=== PATIENT | female | born 2005 | race Caucasian/White ===

== ENCOUNTER 2025-06-22 10:48 | Emergency (ER) | payer OTHER, SELFPAY ==
[2025-06-22 11:01] VITALS: BP 121/76; PULSE 66; RESP 16; TEMP 36.9; O2SAT 100; BMI 25.0
[2025-06-22 11:26] LABS: Hematocrit 40.6 % (36-47); Hemoglobin 13.60 g/dL (11.27-16.99); Mean Corpuscular HGB Conc 33.5 g/dL (30-55); Mean Corpuscular Hemoglobin 29.8 pg (27-33); Mean Corpuscular Volume 89.0 fl (85-98); Nucleated Red Blood Cells % 0 %; Platelet Count 303 10^3/cmm (157-399); Red Blood Count 4.56 10^6/uL (3.85-5.65); White Blood Count 8.77 10^3/uL (3.29-11.43)
[2025-06-22 11:46] VITALS: BP 125/65; PULSE 64; O2SAT 99
[2025-06-22 11:55] LABS: Alanine Aminotransferase 17 U/L (0-33); Albumin Level 4.3 g/dL (3.5-5.2); Alkaline Phosphatase 76 U/L (35-105); Anion Gap 15.9 (5-19); Aspartate Amino Transferase 17 U/L (0-32); Blood Urea Nitrogen 7 mg/dL (6-20); Calcium 9.2 mg/dL (8.5-10.5); Carbon Dioxide 24 mmol/L (22-29); Chloride 105 mmol/L (98-107); Creatinine Clr Calc Pharmacy 123.2577; Globulin 3.0 g/dL (1.3-4.6); Glucose 83 mg/dL (65-115); Osmolality Calculated 289 mOsm/kg (285-295); Potassium 3.9 mmol/L (3.5-5.1); Sodium 141 mmol/L (136-145); Total Protein 7.3 g/dL (6.6-8.7)
--- NOTE | 2025-06-22 12:04 | W.ED.PREGNAN ---
HPI - General: Chief complaint: Vaginal Bleeding Stated complaint: heavy flow(5 wks preg) Time Seen by Provider: 06/22/25 11:39 History of Present Illness: 20-year-old female who estimates herself to be at 5 weeks gestation based on a LMP of 05/13/2025. Comes in complaining of heavy vaginal bleeding that started last night the bleeding has decreased this morning. Her gestational age currently based on her last menstrual period to be 5 weeks 2 days with an EDC of 02/20/2026. Associated symptoms: Deny abdominal pain or dysuria Related Data Previous Rx's ?Medication ?Instructions ?Recorded amoxicillin 500 mg capsule 500 mg PO BID 10 days #20 caps 08/01/23 Allergies Allergy/AdvReac Type Severity Reaction Status Date / Time No Known Allergies Allergy Verified 06/22/25 11:01 Review of Systems Const: Denies: fever(s) or chills Card: Denies: chest pain Resp: Denies: dyspnea GI: Denies: abdominal pain : Reports: vaginal bleeding; Denies: dysuria, urinary frequency or urinary urgency Musc: Denies: neck pain or back pain Skin/Breast: Denies: rash Physical Exam Const: COMMON NORMALS: no acute distress GENERAL APPEARANCE: cooperative and comfortable ORIENTATION/CONSCIOUSNESS: Yes awake, Yes oriented to person, Yes oriented to place and Yes oriented to time HENMT: COMMON NORMALS: normocephalic, atraumatic and hearing grossly normal bilaterally HEAD & SCALP: normocephalic and atraumatic Resp: COMMON NORMALS: normal respiratory effort, No retractions, No use of accessory muscles and clear to auscultation bilaterally AUSCULTATION: clear to auscultation bilaterally Cardio: COMMON NORMALS: regular rate, regular rhythm and No murmurs present (Cardio) RATE: regular rate RHYTHM: regular rhythm GI: COMMON NORMALS: Soft to palpation and No hepatosplenomegaly present AUSCULTATION: Yes normoactive bowel sounds PALPATION: Yes Soft to palpation, No Tenderness to palpation present (GI), No Guarding due to palpation present (GI) and Yes No hepatosplenomegaly present Extremity: COMMON NORMALS: normal to inspection, capillary refill normal, no clubbing, cyanosis or edema, no calf tenderness and no pedal edema Neuro: SENSORIUM/ORIENTATION: Yes oriented to person, Yes oriented to place and Yes oriented to time Skin: COMMON NORMALS: no rashes or lesions noted GENERAL SKIN EXAM: no rashes or lesions noted Course Vital Signs: Vital signs: Vital Signs Temperature 98.4 F 06/22/25 11:01 Pulse Rate 60 06/22/25 13:23 Respiratory Rate 16 06/22/25 11:01 Blood Pressure 125/65 06/22/25 13:23 Pulse Oximetry 97 06/22/25 13:23 Oxygen Delivery Me thod Room Air 06/22/25 11:46 MDM - OB/Uterine Contractions Medical Decision Making Beta-hCG at 51. Suspect she may be having a miscarriage it could be that she is off on her LMP however she is fairly competent of it so I do not believe that is the case. Pelvic exam patient does have some mucousy discharge culture was done. She is not having any active bleeding at this time and the mucousy discharge is blood-tinged. Will discharge patient home she should have a repeat beta-hCG in 3 days return if she has worsening symptoms. Discussed with the patient that with a beta-hCG less than 1500 ultrasound would not contribute to evaluation Medical Records I reviewed the patient's medical records. Lab Data I reviewed the patient's lab results. 06/22/25 11:20 06/22/25 11:20 Laboratory Results WBC 8.77 10^3/uL (3.29-11.43) 06/22/25 11:20 RBC 4.56 10^6/uL (3.85-5.65) 06/22/25 11:20 Hgb 13.60 g/dL (11.27-16.99) 06/22/25 11:20 Hct 40.6 % (36-47) 06/22/25 11:20 MCV 89.0 fl (85-98) 06/22/25 11:20 MCH 29.8 pg (27-33) 06/22/25 11:20 MCHC 33.5 g/dL (30-55) 06/22/25 11:20 RDW 11.9 % (12.1-15.1) L 06/22/25 11:20 Plt Count 303 10^3/cmm (157-399) 06/22/25 11:20 MPV 10.1 fL (7.4-10.4) 06/22/25 11:20 Neut % (Auto) 64.0 % 06/22/25 11:20 Lymph % (Auto) 26.8 % 06/22/25 11:20 Weber % (Auto) 7.0 % 06/22/25 11:20 Eos % (Auto) 0.9 % 06/22/25 11:20 Baso % (Auto) 0.8 % 06/22/25 11:20 Neut # (Auto) 5.62 10^3/uL (1.8-7.7) 06/22/25 11:20 Lymph # (Auto) 2.4 10^3/uL (0.8-4.8) 06/22/25 11:20 Weber # (Auto) 0.6 10^3/uL (0.2-0.9) 06/22/25 11:20 Eos # (Auto) 0.1 10^3/uL (0.0-0.8) 06/22/25 11:20 Baso # (Auto) 0.1 10^3/uL (0.0-0.1) 06/22/25 11:20 Nucleated RBC % (auto) 0 % 06/22/25 11:20 Nucleated RBCs # 0.0 /100WBC 06/22/25 11:20 Sodium 141 mmol/L (136-145) 06/22/25 11:20 Potassium 3.9 mmol/L (3.5-5.1) 06/22/25 11:20 Chloride 105 mmol/L (98-107) 06/22/25 11:20 Carbon Dioxide 24 mmol/L (22-29) 06/22/25 11:20 Anion Gap 15.9 (5-19) 06/22/25 11:20 BUN 7 mg/dL (6-20) 06/22/25 11:20 Creatinine 0.7 mg/dL (0.5-0.9) 06/22/25 11:20 GFR Calculation 105.6 mL/min (90-130) 06/22/25 11:20 Glucose 83 mg/dL (65-115) 06/22/25 11:20 Calculated Osmolality 289 mOsm/kg (285-295) 06/22/25 11:20 Calcium 9.2 mg/dL (8.5-10.5) 06/22/25 11:20 Total Bilirubin 0.2 mg/dL (0.15-1.2) 06/22/25 11:20 AST 17 U/L (0-32) 06/22/25 11:20 ALT 17 U/L (0-33) 06/22/25 11:20 Alkaline Phosphatase 76 U/L (35-105) 06/22/25 11:20 Total Protein 7.3 g/dL (6.6-8.7) 06/22/25 11:20 Albumin 4.3 g/dL (3.5-5.2) 06/22/25 11:20 Globulin 3.0 g/dL (1.3-4.6) 06/22/25 11:20 Ser , Semi-Qnt 51.25 mIU/mL 06/22/25 11:20 Blood Type O Positive 06/22/25 11:19 Rho(D) Type Rh positive 06/22/25 11:19 Antibody Screen Negative 06/22/25 11:19 No radiology studies performed this visit Discharge Plan Discharge Patient Disposition: Home Clinical Impression: Threatened miscarriage in early Condition: Stable Prescriptions: Discontinued Xulane 150-35 mcg/24 hr patch weekly 1 patch transdermal Q7D Rx Instructions: apply once weekly for 3 weeks of a 4-week cycle No Action amoxicillin 500 mg capsule 500 mg PO BID 10 Days Qty: 20 0RF Discharge Orders: Discharge ED (Routine); Ordered 06/22/25 Ordered By: Dawit Haile Discharge Diet: Usual diet Discharge Activity: Resume usual activity Patient Instructions: Opioid Safety, Pain Management, Patient Portal & Yohan Instructions Activity Restrictions/Additional Instructions: Thank you for choosing [facility] for your healthcare needs today. It is very important that you follow up as instructed or that you return to the Emergency Department should you have concerns or if your condition changes or worsens in any way. Emergency department visits are focused on emergent conditions, in some cases you may require further evaluation on an outpatient basis. You were seen in the emergency room with complaints of vaginal bleeding. Based on your LMP that you gave us you should be a little past 5 weeks your beta hCG was low for 5 weeks. If you are off just a few weeks this beta-hCG could be normal. The only way to determine this is going to be to repeat a beta-hCG in 3 days. Ultrasound with a beta-hCG less than 1500 will not show anything definitive your beta-hCG was only 51 so an ultrasound was not done. Pelvic exam and cultures were done which were unremarkable. Blood type is O+ you do not require RhoGAM the remainder of your lab testing was normal. Follow-up in 3 days for repeat beta-hCG. (Please note that included in your discharge packet is information concerning opioid safety and pain management. This information is given to all patients were discharged from the ER regardless of their discharge diagnosis or the medicines they usually take or are prescribed.) Print Language: Mexican Coding Level of Care Code ED [employer]
[2025-06-22 13:23] VITALS: BP 125/65; PULSE 60; O2SAT 97
[2025-06-22 14:48] LABS: Neisseria Gonorrhea NOT DETECTED (Negative)
== END 2025-06-22 13:33 | disposition home or self-care (01) ==
PROVIDERS: Emergency Medicine; Emergency Provider Family Medicine
DX: O20.0 Threatened abortion (principal); Z3A.01 Less than 8 weeks gestation of pregnancy
CPT/HCPCS: 80053; 84702; 85025; 86850; 86900; 87491; 87591; 99283; E0352

== ENCOUNTER → 2025-08-02 11:31 | Outpatient (BNVA) | payer SELFPAY | PROVIDERS: Visit Provider Registered Nurse Neonatal Intensive Care | DX: J02.9 Acute pharyngitis, unspecified (principal) | CPT/HCPCS: 87071; 87880 ==